=== PATIENT | male | born 1950 | race Caucasian/White ===

== ENCOUNTER 2016-05-24 12:40 | Day surgery (SDC) | payer OTHER ==
[~2016-05-24] VITALS: Ht 190.5 cm; Wt 90.0 kg
[2016-05-24] MEDS ORDERED: SODIUM CHLOR 0.9% 1000 ML IV SCH (13:00)
[2016-05-24 13:05] VITALS: BP 140/78; PULSE 92; RESP 20; TEMP 97.8; O2SAT 97
[2016-05-24] MEDS ORDERED: VITA10003 PO (13:14)
[2016-05-24] MEDS ORDERED: CURCPOW (13:14)
[2016-05-24] MEDS ORDERED: MULT1TAB84 PO (13:14)
[2016-05-24] MEDS ORDERED: STOO100C (13:14)
[2016-05-24 13:35] LABS: AUTOMATED NEUTROPHIL # 1.9 TH/MM3 (1.8-7.7); BASOPHIL % 0.3 % (0.0-2.0); EOSINOPHIL # 0.1 TH/MM3 (0-0.4); EOSINOPHIL % 1.3 % (0.0-4.0); HEMATOCRIT 39.7 % (39.0-51.0); LYMPH % 54.6 % (9.0-44.0); LYMPHOCYTE # 2.7 TH/MM3 (1.0-4.8); MEAN CELL VOLUME 88.9 FL (80.0-100.0); MEAN CORPUSCULAR HEMOGLOBIN 30.3 PG (27.0-34.0); MEAN CORPUSCULAR HGB CONC 34.1 % (32.0-36.0); MONO % 6.5 % (0.0-8.0); NEUT % 37.3 % (16.0-70.0); PLATELET COUNT 75 TH/MM3 (150-450); RED BLOOD COUNT 4.47 MIL/MM3 (4.50-5.90); RED CELL DISTRIBUTION WIDTH 16.2 % (11.6-17.2)
[2016-05-24 13:38] LABS: HEMO FLAGS AUTO DIFF
[2016-05-24 14:09] LABS: ATYPICAL LYMPHOCYTES 13 % (0-0); POLYS (SEG NEUTROPHILS) 40 % (16-70); WBC DIFF SAMPLE 100
[2016-05-24 14:10] LABS: OVALOCYTES 1+ (NORMAL); PLATELET ESTIMATE SMEAR LOW (NORMAL)
[2016-05-24 14:11] LABS: PLATELET MORPHOLOGY NORMAL (NORMAL); SCAN/DIFF FINAL DIFF MANUAL
[2016-05-24] MEDS ORDERED: fentaNYL CITRATE 250 MCG/5 ML AMP ONE (14:50)
[2016-05-24] MEDS ORDERED: MIDAZOLAM HCL 5 MG/5 ML VIAL ONE (14:51)
[2016-05-24] MEDS ORDERED: LIDOCAINE 1%/EPINEPHrine 1:100,000 SOLN 20 ML VIAL ONE (15:02)
[2016-05-24 16:30] VITALS: BP 110/65; PULSE 84; RESP 22; TEMP 98; O2SAT 99
[2016-05-24 16:45] VITALS: BP 110/66; PULSE 80; RESP 22; O2SAT 94
[2016-05-24 16:45] LABS: BONE MARROW PROCESSING COMPLETE; IRON STAIN DONE; JENNER GIEMSA STAIN DONE
[2016-05-24 17:15] VITALS: BP 112/69; PULSE 78; RESP 22; O2SAT 94
--- NOTE | 2016-05-24 17:17 | RADRPT ---
EXAM DATE/TIME: 05/24/2016 15:18 [facility] COMPARISON: No previous studies available for comparison. INDICATIONS : Left neck mass. MEDICAL HISTORY : Prostate cancer. Thrombocytopenia. Congenital deafness. Chronic lymphocytic leukemia. SURGICAL HISTORY : Prostate biopsy. ORIF left wrist. Cataract. Tonsillectomy. ENCOUNTER: Initial ACUITY: 1 day PAIN SCORE: 0/10 LOCATION: Left neck ORGAN: Left lymph node SPECIMENS: Five core specimen(s) submitted for pathologic evaluation. DEVICE: 18 gauge Temno needle Post procedure scanning reveals no hematoma or other complication. The possibility does exist that the tissue obtained will be non-diagnostic. If the sample is non-katharina gnostic a repeat biopsy or surgical biopsy may need to be performed. TECHNIQUE: 1. Ultrasound guidance for needle biopsy. 2. Needle biopsy. The risks, benefits, and alternatives to ultrasound guided needle biopsy were explained to the patien t in detail including the risk of bleeding and infection. Written and verbal informed consent was ob tained. With the patient on the ultrasound table, images were obtained. The left neck was evaluated with ult rasound and documents innumerable enlarged abnormal appearing lymph nodes with thickened cortex. The largest lymph node measures 3.0 x 1.3 x 2.2 cm. This lymph node was targeted for biopsy. Overlying sk in was prepped and draped in the usual sterile fashion and Lidocaine was utilized as a local anesthet ic. A needle was advanced into left neck lymph node and 5 core samples were obtained and submitted for pa thologic evaluation. The patient tolerated the procedure well and immediately following this procedure a bone marrow biops y was performed. That procedure will be dictated separately. CONCLUSION: Uncomplicated ultrasound guided needle biopsy of an abnormally enlarged left neck lymph node. Missael Negron MD on May 24, 2016 at 17:14 Board Certified Radiologist. This report was verified electronically.
[2016-05-24 17:43] VITALS: BP 110/69; PULSE 80; RESP 22; O2SAT 94
--- NOTE | 2016-06-03 07:04 | RADRPT ---
EXAM DATE/TIME: 05/24/2016 15:51 [facility] COMPARISON: No previous studies available for comparison. INDICATIONS : Bone marrow SEDATION TIME: 15 minutes BIOPSY SITE: Left MEDICATION(S): 1.) 4 mg midazolam (Versed) IV 2.) 200 mcg fentanyl (Sublimaze) DEVICE(S): 1.) 11 gauge Bone marrow biopsy needle MEDICAL HISTORY : None. SURGICAL HISTORY : None. ENCOUNTER: Initial ACUITY: 1 day PAIN SCORE: 3/10 LOCATION: Left pelvis A total of one core specimen(s) were obtained and sent to the laboratory for pathologic evaluation. PROCEDURE: 1. CT guided bone marrow biopsy. 2. Conscious sedation with continuous EKG and oximetry monitoring. 3. EKG and oximetry remained stable throughout the procedure. Prior to the procedure informed consent was obtained. Any appropriate prior imaging studies were rev iewed. Using automated exposure control and adjustment of the mA and/or kV according to patient size , radiation dose was kept as low as reasonably achievable to obtain optimal diagnostic quality images . The site was prepped in a sterile fashion. Full sterile technique was used, including cap, mask, denise rile gloves and gown and a large sterile sheet. Hand hygiene and 2% chlorhexidine and/or betadine/al cohol prep was utilized per protocol for cutaneous antisepsis. The skin and subcutaneous tissues wer e infiltrated with local anesthetic solution. With CT guidance the previously identified target was localized. Biopsy was performed using the presc ribed needle as above. Following biopsy marrow aspiration was performed with repeat puncture. Adequa te hemostasis was obtained with compression at the puncture site. Follow-up CT scan reveals no hemorrhage. Conscious sedation was performed with the prescribed dosages and duration as above in the presence of an independent trained radiology nurse to assist in the monitoring of the patient. EKG and oximetry remained stable throughout the procedure. The patient tolerated the procedure well and there were no complications. The patient was sent to Radiology Outpatient Unit in stable condition. CONCLUSION: Normal examination. 1. Uncomplicated CT guided bone marrow aspirate. 2. Uncomplicated CT guided bone marrow biopsy. Missael Negron MD on June 03, 2016 at 7:02 Board Certified Radiologist. This report was verified electronically.
== END 2016-05-24 17:46 | disposition home or self-care (01) ==
LOC: HRAD 12:40 → HRIP 12:41 → HRAD 17:46
PROVIDERS: ATTEND Internal Medicine Hematology & Oncology
DX: C91.10 Chronic lymphocytic leukemia of B-cell type not having achieved remission (principal); C85.90 Non-Hodgkin lymphoma, unspecified, unspecified site; D69.6 Thrombocytopenia, unspecified; H90.5 Unspecified sensorineural hearing loss; Z85.46 Personal history of malignant neoplasm of prostate
CPT/HCPCS: 38221; 38505; 76942; 77012; 85007; 85027; 85097; 88305; 88311; 88313; 99151; C1830; G0364; J2250; J3010